=== PATIENT | female | born 1975 | race Caucasian/White ===

== ENCOUNTER → 2020-10-23 | Outpatient (CLI) | payer OTHER ==
[~2020-10-23] MED LIST: AMOCLA875 PO; ASPI81EC PO; CODACEE120 PO; CYCL10 PO; DICL75ER PO; GABA300; GLUC500 PO; GUAI600T33 PO; HYDCHL25 PO; HYDPAM50 PO; LEVSOD125 PO; LEVSOD175 PO; OMEP20ER PO; PRED20 PO; RANI150 PO; SERT25 PO; SULTRIDS PO
== END | disposition home or self-care (01) ==
LOC: PLD 07:49 → LAB SHORT 07:49
DX: D48.5 Neoplasm of uncertain behavior of skin (principal)
CPT/HCPCS: 88305

== ENCOUNTER → 2023-07-14 | Outpatient (CLI) | payer BC, OTHER | LOC: LAB 09:52 → LAB SHORT 09:52 | DX: J02.9 Acute pharyngitis, unspecified (principal) | CPT/HCPCS: 87081 ==

== ENCOUNTER → 2024-09-19 | Outpatient (CLI) | payer BC | END | disposition home or self-care (01) | LOC: LAB SHORT 15:45 → LAB 15:45 | DX: H92.11 Otorrhea, right ear (principal) | CPT/HCPCS: 87070; 87102; 87106; 87205 ==